=== PATIENT | female | born 1975 | race Two or more races ===

== ENCOUNTER 2017-06-26 10:36 | Emergency (ER) | payer OTHER ==
[~2017-06-26] VITALS: Ht 157.5 cm; Wt 72.0 kg
[2017-06-26] MEDS ORDERED: LORazepam 1MG TABLET ONE (11:04)
[2017-06-26] MEDS ORDERED: SODIUM CHLORIDE 0.9% 1,000ML IVBOLUS ONE (11:30)
[2017-06-26] MEDS ORDERED: SODIUM CHLORIDE FLUSH 10ML SYR IVF ONE ×2 (11:30)
[2017-06-26 11:53] LABS: BASOPHILS # (AUTO) 0.03 x10^3/uL (0-0.1); BASOPHILS % (AUTO) 0 % (0-1); EOSINOPHILS % (AUTO) 7 % (1-7); LYMPHOCYTES # (AUTO) 2.46 x10^3/uL (1-3.4); LYMPHOCYTES % (AUTO) 40 % (22-44); MD NO; MEAN CORPUSCULAR HEMOGLOBIN 21.8 pg (27.0-34.8); MEAN CORPUSCULAR HGB CONC 31.3 g/dL (32.4-35.8); MEAN CORPUSCULAR VOLUME 69.7 fL (80-100); MONOCYTES # (AUTO) 0.35 x10^3/uL (0.2-0.8); MONOCYTES % (AUTO) 6 % (2-9); NEUTROPHILS # (AUTO) 2.98 x10^3/uL (1.8-6.8); NEUTROPHILS % (AUTO) 48 % (42-75); PLATELET COUNT 264 x10^3/uL (130-400); RED BLOOD COUNT 4.17 x10^6/uL (3.82-5.3); RED CELL DISTRIBUTION WIDTH 18.5 % (9.6-15.2)
[2017-06-26] MEDS ORDERED: LORazepam 1MG TABLET PO ONE (12:00)
[2017-06-26 12:03] LABS: ALANINE AMINOTRANSFERASE 15 U/L (12-78); ALBUMIN 3.6 g/dL (3.4-5.0); ANION GAP 6 mmol/L (5-15); CALCIUM 8.4 mg/dL (8.5-10.1); CHLORIDE 111 mmol/L (98-107); CREATININE 0.68 mg/dL (0.55-1.02)
[2017-06-26 12:05] LABS: ALKALINE PHOSPHATASE 61 U/L (45-117); BILIRUBIN,TOTAL 0.2 mg/dL (0.2-1.0)
[2017-06-26 14:30] VITALS: BP 115/66
== END 2017-06-26 14:33 | disposition home or self-care (01) ==
LOC: ED 11:36
DX: R56.9 Unspecified convulsions (principal); E78.00 Pure hypercholesterolemia, unspecified; E11.9 Type 2 diabetes mellitus without complications
CPT/HCPCS: 36415; 80053; 80201; 85025; 96360; 99284; J7030

== ENCOUNTER 2020-06-24 15:23 | Emergency (ER) | payer SELFPAY ==
[~2020-06-24] VITALS: Ht 157.5 cm; Wt 68.8 kg
--- NOTE | 2020-06-24 16:17 | NUR ---
PT IS A 45F BROUGHT IN TODAY BY HER WHO STATES THE PT IS DISORIENTED AND THIS IS THE WAY SHE GETS BEFORE SHE HAS A SZ. PT IS A&OX2 RIGHT NOW. LAST SZ 8 MONTHS AGO. SHE TOOK HER SZ MEDICATIONS THIS MORNING. PROVIDER AT BEDSIDE FOR EVAL, SUPERVISOR SLITTING AND SHIPPING IN PLACE, CONTINUOUS SP02 AND CYCLING VITALS.
--- NOTE | 2020-06-24 16:21 | NUR ---
SEIZURE PADS IN PLACE, CALL LIGHT WITHIN REACH AND AT BEDSIDE.
[2020-06-24] MEDS ORDERED: LORazepam 2 MG/ML, 1ML IVPush ONE (16:30)
[2020-06-24] MEDS ORDERED: SODIUM CHLORIDE FLUSH 10ML SYR IVF ONE (16:30)
[2020-06-24] MEDS ORDERED: LORazepam 2 MG/ML, 1ML ONE (16:40)
--- NOTE | 2020-06-24 17:04 | NUR ---
NO SZ ACTIVITY, 20G IV PLACED, MEDICATED PER ORDERS. PT RESTING COMFORTABLY, SPOUSE AT BEDSIDE.
[2020-06-24 17:20] LABS: BASOPHILS % (AUTO) 1 % (0-1); EOSINOPHILS % (AUTO) 6 % (1-7); LYMPHOCYTES % (AUTO) 32 % (22-44); MD NO; MEAN CORPUSCULAR HEMOGLOBIN 22.4 pg (27.0-34.8); MEAN CORPUSCULAR HGB CONC 31.8 g/dL (32.4-35.8); MEAN PLATELET VOLUME 8.6 fL (7.4-10.4); MONOCYTES % (AUTO) 4 % (2-9); NEUTROPHILS % (AUTO) 56 % (42-75); PLATELET COUNT 392 x10^3/uL (130-400); RED BLOOD COUNT 4.24 x10^6/uL (3.82-5.3); RED CELL DISTRIBUTION WIDTH 16.8 % (9.6-15.2)
--- NOTE | 2020-06-24 17:23 | NUR ---
PATIENT RESTING COMFORTABLY WITH SZ PADS ON BED. SPOUSE AT BEDSIDE. CALL LIGHT WITHIN REACH.
[2020-06-24 17:31] LABS: ALANINE AMINOTRANSFERASE 13 U/L (12-78); ALBUMIN 3.5 g/dL (3.4-5.0); ANION GAP 5 mmol/L (5-15); CALCIUM 8.6 mg/dL (8.5-10.1); CHLORIDE 113 mmol/L (98-107); CREATININE 0.69 mg/dL (0.55-1.02)
[2020-06-24 17:33] LABS: ALKALINE PHOSPHATASE 82 U/L (45-117); BILIRUBIN,TOTAL 0.2 mg/dL (0.2-1.0); TOTAL PROTEIN 7.2 g/dL (6.4-8.2)
--- NOTE | 2020-06-24 17:45 | NUR ---
MED REQUESTED FROM PHARMACY
[2020-06-24] MEDS ORDERED: LEVETIRACETAM 1,000 MG in SODIUM CHLORIDE 0.9% 100 ML IV ONE (18:00)
--- NOTE | 2020-06-24 18:30 | NUR ---
MEDICATED PATIENT PER ORDER, SPOUSE AT BEDSIDE, PT RESTING COMFORTABLY. NO ADDITIONAL NEEDS AT THIS TIME. CALL LIGHT WITHIN REACH. NO SEIZURE ACTIVITY NOTED.
--- NOTE | 2020-06-24 18:55 | NUR ---
report recieved from sampson anderson
--- NOTE | 2020-06-24 18:57 | NUR ---
REPORT TO MORENO GONZALEZ
[2020-06-24 19:15] VITALS: BP 111/68
== END 2020-06-24 19:47 | disposition home or self-care (01) ==
LOC: ED 17:20
DX: G40.909 Epilepsy, unspecified, not intractable, without status epilepticus (principal); R79.1 Abnormal coagulation profile; R51.9 Headache, unspecified; E11.9 Type 2 diabetes mellitus without complications
CPT/HCPCS: 36415; 80053; 80177; 80201; 85025; 96365; 96375; 99285; J1953; J2060